=== PATIENT | male | born 1945 | race Caucasian/White ===

== ENCOUNTER 2018-08-04 18:06 | Observation (INO) | payer MEDICARE ==
[~2018-08-04 18:06] MED LIST: Lidocaine 1% PF 5 ML VIAL ONE; Ondansetron PF 4 MG/2 ML Vial ONE; PROPOFOL 200 MG/20 ML VIAL ONE; ePHEDrine/0.9% NaCl/PF SYRINGE 50 mg/10 ml ONE
[2018-08-04] MEDS ORDERED: Gentamicin Sulfate 415 MG in Sodium Chloride 0.9% 100 ML IVPB ONE (19:15)
[2018-08-04] MEDS ORDERED: HYDROmorphone 0.5 MG/0.5 ML SYRINGE ONE (19:26)
[2018-08-04] MEDS ORDERED: Bacitracin Zinc Ointment 30 gm TUBE ONE (20:58)
[2018-08-04] MEDS ORDERED: Bupivacaine PF 0.5% 30 ML VIAL ONE (20:58)
[2018-08-04] MEDS ORDERED: Sodium Chloride 0.9% 30 ML ONE (20:58)
[2018-08-04] MEDS ORDERED: Promethazine HCl 25 MG/ML VIAL IM PRN (21:43)
[2018-08-04] MEDS ORDERED: HYDROcodone/Acetaminophen 5/325 mg Tablet PO PRN (21:43)
[2018-08-04] MEDS ORDERED: Communication Order-Pharmacy FS SCH (21:45)
[2018-08-04] MEDS ORDERED: Morphine 2 MG/ML SYRINGE ONE (21:48)
[2018-08-04] MEDS ORDERED: TETANUS AND DIPHTHERIA TOX/PF 0.5 ML DISP.SYRIN IM SCH (22:00)
[2018-08-04] MEDS ORDERED: Morphine 4 MG/ML VIAL ONE (22:11)
[2018-08-04] MEDS ORDERED: Fentanyl 100 MCG/2 ML VIAL ONE (22:25)
[2018-08-05] MEDS: Vancomycin HCl 1.5 GM in Sodium Chloride 0.9% 250 ML 300 ML IVPB SCH ×2 (01:17→12:16)
[2018-08-05 01:36] VITALS: BMI 33.4
--- NOTE | 2018-08-05 08:21 | OP ---
PREOPERATIVE DIAGNOSIS: Left middle finger open wound, 3 x 1 cm, with open fracture of distal phalan x and partial amputation with exposed bone and nail bed. PROCEDURES PERFORMED: 1. Bone debridement. 2. Debridement of material associated with open fracture. 3. Open treatment of distal phalanx fracture. 4. Wound coverage with 4 cm x 1 cm wound. 5. Removal of nail bed. SPECIMEN: No specimen was sent to lab, but there was bone removed to allow wound for closure without tension. ESTIMATED BLOOD LOSS: 50 mL. TOURNIQUET TIME: 15 minutes. INDICATIONS: The patient was to prepare a flute grinder at home in order to self-create when his fin cindy slipped and his long finger on his left nondominant hand was caught inside the flute grinder. He clementina prieto has 3 right and one left partial digit amputation based on previous activity as a younger person. DESCRIPTION OF PROCEDURE: After successful general LMA technique, the limb was prepped and draped. Timeout was done appropriately. Then, the patient had the wound inspected, the limb was exsanguinate d, tourniquet inflated to 250 mmHg pressure. The patient first had the left middle finger wound, undergo wound debridement using tenotomy scissors , curet, and a [place] blade, followed by irrigation. This was excisional technique and the rongeur w as added to perform some bone debridement. The open fracture, underwent debridement as well with the same instrumentation, an excisional technique, and the depth included the bone and surrounding tissu e nearly 360 degrees. We were finished irrigation with 4 liters normal saline and Pulsavac pressure. We then inspected the area of nail bed portion on the radial aspect which was then identified, use a [place] blade to excis e down to bone. Extensor mechanism and flexor mechanism . Only approximately 2.5 mm of bone in terms of distance from distal tip to the proximal was removed. This included the fracture itself as the open treatment of fracture. The tourniquet was deflated. Hemostasis was obtained. He did not need a skin graft as it was a larg e flap that was also debrided as well with tenotomy scissors. There was no evidence of contamination at the end of the procedure, so we closed it primarily with a gentle closure using 4-0 nylon simple pattern interrupted without undue tension. The patient then had circulation to the tip verified, a bulky dressing was applied just including the finger and the patient left the operating room without evidence of anesthetic or operative complicat ion.
[2018-08-05] MEDS: Aspirin 81 mg Enteric Coated Tablet PO SCH ×2 (08:35→20:31)
[2018-08-05] MEDS: Morphine 2 MG/ML SYRINGE IVP PRN ×2 (15:39→20:32)
[2018-08-05] MEDS: Meperidine HCl/PF 25 MG/ML VIAL IM PRN ×2 (17:19→23:39)
[2018-08-05] MEDS ORDERED: Meperidine HCl/PF 25 MG/ML VIAL IM PRN (18:39)
[2018-08-05] MEDS: traMADol HCl 50 MG TAB PO PRN (20:31)
[2018-08-05] MEDS: Vancomycin HCl 1 GM in Premix Bag 1 BAG IVPB SCH (23:45)
[2018-08-06] MEDS: Morphine 2 MG/ML SYRINGE IVP PRN ×5 (00:56→22:37)
[2018-08-06] MEDS: Ondansetron PF 4 MG/2 ML Vial IVP PRN ×2 (00:59→11:47)
[2018-08-06] MEDS: Aspirin 81 mg Enteric Coated Tablet PO SCH ×2 (08:57→20:19)
[2018-08-06] MEDS: traMADol HCl 50 MG TAB PO PRN ×2 (08:57→21:33)
[2018-08-06] MEDS: Vancomycin HCl 1 GM in Premix Bag 1 BAG IVPB SCH (11:47)
[2018-08-06] MEDS: Meperidine HCl/PF 25 MG/ML VIAL IM PRN (16:28)
[2018-08-06] MEDS: HYDROcodone/Acetaminophen 10/325 mg Tablet PO PRN (20:19)
[2018-08-06 23:35] LABS: Vancomycin, Trough 19.6 ug/mL
[2018-08-07] MEDS: HYDROcodone/Acetaminophen 10/325 mg Tablet PO PRN ×2 (00:39→11:07)
[2018-08-07] MEDS: Vancomycin HCl 1 GM in Premix Bag 1 BAG IVPB SCH ×2 (00:39→12:23)
[2018-08-07] MEDS: Morphine 2 MG/ML SYRINGE IVP PRN ×3 (00:40→06:29)
[2018-08-07] MEDS: Aspirin 81 mg Enteric Coated Tablet PO SCH (08:16)
[2018-08-07 08:26] VITALS: TEMP 97.8
[2018-08-07 12:21] VITALS: BP 123/76
== END 2018-08-07 15:20 | disposition home or self-care (01) ==
LOC: ERS 18:06 → SURG B 21:43
PROVIDERS: ADMIT Orthopaedic Surgery Hand Surgery; ATTEND Orthopaedic Surgery Hand Surgery
PROC: 0PBV0ZZ Excision of Left Finger Phalanx, Open Approach (ICD-10-PCS; principal; 2018-08-04)
PROC: 0HTQXZZ Resection of Finger Nail, External Approach (ICD-10-PCS; 2018-08-04)
DX: S68.623A Partial traumatic transphalangeal amputation of left middle finger, initial encounter (principal); G89.29 Other chronic pain; M54.9 Dorsalgia, unspecified; K21.9 Gastro-esophageal reflux disease without esophagitis; E78.5 Hyperlipidemia, unspecified; E78.00 Pure hypercholesterolemia, unspecified; I10 Essential (primary) hypertension; Z87.891 Personal history of nicotine dependence; Z79.82 Long term (current) use of aspirin; Z79.891 Long term (current) use of opiate analgesic; Z79.899 Other long term (current) drug therapy; Z89.029 Acquired absence of unspecified finger(s); Z90.5 Acquired absence of kidney; W29.0XXA Contact with powered kitchen appliance, initial encounter
CPT/HCPCS: 11012; 80202; 94760; 96365; 96366 ×3; 96367; 96375 ×3; 96376 ×2; 99285; G0378 ×2; 36415; J1170; J1580; J2001; J2175; J2270; J2405; J2704; J3010; J3370; J3490; J7050; S0020